=== PATIENT | female | born 1960 | race Caucasian/White ===

== ENCOUNTER 2016-12-03 07:47 | Outpatient (CLI) | payer BC ==
[~2016-12-03] VITALS: Ht 175.3 cm; Wt 79.5 kg
[2016-12-03] MEDS ORDERED: MULTI VITAMINS1 TAB PO (08:30)
[2016-12-03] MEDS ORDERED: MULTAQ400 MG PO (08:30)
[2016-12-03] MEDS ORDERED: NATURAL IRON65 MG PO (08:31)
[2016-12-03] MEDS ORDERED: ASPIRIN 81M81 MG/TA2 PO (08:31)
[2016-12-03] MEDS ORDERED: OSCAL 500 TAB500 MG PO (08:31)
[2016-12-03] MEDS ORDERED: FISH OIL1000 MG PO (08:32)
[2016-12-03] MEDS ORDERED: VITAMIN C500 MG PO (08:32)
[2016-12-03 08:33] VITALS: BP 115/63; PULSE 57; TEMP 98.2
[2016-12-03] MEDS ORDERED: CEPHALEXIN500 M1 PO (09:27)
== END 2016-12-03 09:36 | disposition home or self-care (01) ==
LOC: EUO 07:47
DX: I48.0 Paroxysmal atrial fibrillation (principal)
CPT/HCPCS: C1764

== ENCOUNTER 2017-06-06 17:06 | Inpatient (IN) | payer BC ==
[~2017-06-06] VITALS: Ht 175.3 cm; Wt 80.1 kg
[~2017-06-06 17:06] MED LIST: ASPIRIN 81M81 MG/TA2 PO; CEPHALEXIN500 M1 PO; FISH OIL1000 MG PO; MULTAQ400 MG PO; MULTI VITAMINS1 TAB PO; NATURAL IRON65 MG PO; OSCAL 500 TAB500 MG PO; VITAMIN C500 MG PO
[2017-06-17 08:23] VITALS: BP 144/72; PULSE 55; TEMP 97.7
[2017-06-17] MEDS ORDERED: VITAMINC1000TA PO (08:59)
[2017-06-17] MEDS ORDERED: VITAMIN D 1001000 IU PO (09:00)
[2017-06-17] MEDS ORDERED: CALCIUM 600MG+D1 TAB PO (09:00)
[2017-06-17 09:22] LABS: ADD PATHOLOGY DIFF REVIEW NO
[2017-06-17 09:26] LABS: HEMATOCRIT 37.3 % (37.0-47.0); HEMOGLOBIN 13.1 g/dl (12.5-16.0); MEAN CELL VOLUME 90 fl (80.0-100.0); MEAN CORPUSCULAR HEMOGLOBIN 32 pg (27.0-31.0); MEAN CORPUSCULAR HGB CONC 35 g/dl (33.0-37.0); MEAN PLATELET VOLUME 9.1 fl (7.4-10.4); PLATELET COUNT 203 K/mm3 (130-400); RED BLOOD COUNT 4.13 M/mm3 (4.10-5.30); REDCELL DISTRIBUTION WIDTH-CV 12.4 % (11.5-14.5)
[2017-06-17 09:31] LABS: PROTHROMBIN TIME 10.9 SECONDS (9.7-12.8)
[2017-06-17 09:35] LABS: ADJUSTED CALCIUM 9.1 mg/dL (8.4-10.2); ALBUMIN 4.1 gm/dL (3.5-5.0); BILIRUBIN,TOTAL 0.6 mg/dL (0.0-1.0); CALCIUM 9.2 mg/dL (8.4-10.2); CREATININE, serum 0.75 mg/dL (0.52-1.25); POTASSIUM 3.8 mmol/L (3.4-5.0); TOTAL PROTEIN 6.8 gm/dL (6.4-8.2)
[2017-06-17 11:21] LABS: BAND 11 % (0-10); EOSINOPHIL 2 % (0-4); METAMYELOCYTE 2 % (0-0); NEUTROPHILS 49 % (42.0-75.2); PLATELET ESTIMATE NORMAL (NORMAL); TOTAL CELLS COUNTED 100
[2017-06-17 11:49] VITALS: BP 115/62; PULSE 42; TEMP 98
[2017-06-17 15:41] VITALS: BP 118/59; PULSE 51; TEMP 97.2
[2017-06-17 20:16] VITALS: BP 132/63; PULSE 51; TEMP 97.9
[2017-06-18 00:05] VITALS: BP 119/57; PULSE 45; TEMP 97.6
[2017-06-18 04:18] VITALS: BP 116/60; PULSE 41; TEMP 97.8
[2017-06-18 08:05] VITALS: BP 110/61; PULSE 53; TEMP 97.4
[2017-06-18 11:02] VITALS: BP 102/52; PULSE 44; TEMP 98.1
[2017-06-18 15:32] VITALS: BP 106/49; PULSE 48; TEMP 98.3
[2017-06-18 20:30] VITALS: BP 117/61; PULSE 43; TEMP 98.5
[2017-06-19 00:11] VITALS: BP 120/53; PULSE 52; TEMP 98.3
[2017-06-19 05:27] VITALS: BP 105/50; PULSE 55; TEMP 97.6
[2017-06-19 07:18] VITALS: BP 112/55; PULSE 50; TEMP 97.8
[2017-06-19 11:54] VITALS: BP 113/55; PULSE 42; TEMP 97.9
[2017-06-19] MEDS ORDERED: BETAPACE 80MG80 MG PO (14:19)
== END 2017-06-19 14:48 | disposition home or self-care (01) | DRG 310 ==
LOC: MEDICAL 06-17 08:04
PROVIDERS: Internal Medicine Cardiovascular Disease
DX: I48.0 Paroxysmal atrial fibrillation (principal)

== ENCOUNTER 2023-06-19 11:40 | Day surgery (SDC) | payer OTHER ==
[~2023-06-19] VITALS: Ht 175.4 cm; Wt 89.4 kg
[~2023-06-19 11:40] MED LIST changes: +BETAPACE 80MG80 MG PO; +CALCIUM 600MG+D1 TAB PO; +VITAMIN D31000 IU PO; +VITAMINC1000TA PO
[2023-06-19] MEDS ORDERED: PHARMASSURE ZIN50 MG PO (12:04)
[2023-06-19] MEDS ORDERED: ZESTRIL 10MG10 MG PO (12:10)
[2023-06-19 12:17] VITALS: BP 145/81; PULSE 64; TEMP 98.4
--- NOTE | 2023-06-19 14:08 | NUR ---
Please see merge documentation for record of interventions, vitals and medications administered during procedure.
[2023-06-19] MEDS ORDERED: CEPHALEXIN500 M1 PO (14:23)
[2023-06-19 14:32] VITALS: BP 137/79; PULSE 64
[2023-06-19 14:45] VITALS: BP 141/84; PULSE 64
[2023-06-19 15:00] VITALS: BP 144/81; PULSE 64
[2023-06-19 15:15] VITALS: BP 139/74; PULSE 63
[2023-06-19 15:30] VITALS: BP 130/79; PULSE 65
--- NOTE | 2023-06-19 15:32 | NUR ---
DC instrucitons reviewed with pt and . Both express understanding. Pt is steady on feet around room. Dressing remains clean, dry and intact. IV DC'd, site wrapped with coban. She is assisted out to 's car by wheelchair.
== END 2023-06-19 15:32 | disposition home or self-care (01) ==
LOC: COL.CAR 11:40
DX: I48.0 Paroxysmal atrial fibrillation (principal); R55 Syncope and collapse; R42 Dizziness and giddiness; I07.9 Rheumatic tricuspid valve disease, unspecified; Z95.818 Presence of other cardiac implants and grafts; Z98.890 Other specified postprocedural states
CPT/HCPCS: J0690; J2250; J3010